=== PATIENT | male | born 1955 | race Caucasian/White ===

== ENCOUNTER 2017-01-14 22:44 | Emergency (ER) | payer MEDICARE ==
--- NOTE | ~2017-01-14 | CR63 ---
[facility] A Service of [facility] & [facility] RADIOLOGY TEXT RESULTS PATIENT: RACHEL COELLO LOCATION: [facility] : 53 UNIT #: [id number] AGE: [address]: Joe Pierce MD SEX: M ORDER DR: [id number] [facility] [address] [place], [place] [address] [id number] E MR#: [id number] Acc #: [id number] NAME: RACHEL COELLO : 1955 SEX: M STUDY DATE/TIME: 01/15/2017 03:26 UNIT: [facility] ROOM: STUDY DESCRIPTION: CR Chest 2 View Attending Physician: Joe Pierce M.D. Ordering Physician: Joe Pierce M.D. Primary Care Physician: [facility] MEDICAL IMAGING REPORT This report is preliminary unless electronic signature is present EXAM Chest x-ray 04/06/2016 03:26 INDICATIONS Shortness of air, fever tonight. FINDINGS PA and lateral views of the chest are compared with 11/08/2011. Cardiomegaly is stable. Lungs are clear. Vascularity is normal. No pneumothorax. IMPRESSION Stable cardiac enlargement. No active disease. Dictated by... Alexys Oden Jr., M.D. THIS IS AN ELECTRONICALLY VERIFIED REPORT Alexys Oden Jr., M.D. at 01/16/2017 5:53 AM YIMI/ceferino TD: 01/15/2017 07:27 JOB #: [id number] MEDICAL IMAGING REPORT Page 1 of 1 COPY
[~2017-01-14 22:44] MED LIST: ASPIRIN ENTERI325 M1; B COMPLEX1 TAB PO; BUPROPION XL300 M1 PO; CARTIA PO; CARTIA XT PO; CARVEDILOL12.5 MG PO; CELEBREX PO; CERTAGEN PO; COLESTID PO; DILTIAZEM 24HR240 M1 PO; FENOFIBRATE134 MG PO; GLUCOSAMINE-CH1 EA10 PO; GLUCOSOMINE; HCTZ PO; HYDROCHLOROTHIA25 MG PO; HYDROCODON-ACE1 EAC5 PO; HYDROCODONE-APA1 T30 PO; HYTRIN5 MG; IBUPROFEN PO; IBUPROFEN800 MG; LASIX PO; LISINOPRIL PO; LOPRESSOR PO; LORTAB 7.5-5001 TAB; MULTIPLE VITAMI1 T11 PO; OMEPRAZOLE40 M1 PO; PHENERGAN PO; PRILOSEC PO; PROZAC PO; SEROQUEL PO; THORAZINE PO; TYLENOL #3 PO; VITAMIN C PO; VITAMIN E400 UNI4 PO; XANAX0.5 MG
[2017-01-15 03:05] LABS: BASOPHIL# 0.1 X10e3 (0-0.3); EOSINOPHIL# 0.1 X10e3 (0-0.7); EOSINOPHIL% 1.7 % (0.0-7.0); HEMATOCRIT 47.7 % (38.0-50.0); HEMOGLOBIN 15.9 gm/dL (13.0-16.0); LYMPHOCYTE# 2.2 X10e3 (1.0-3.5); LYMPHOCYTE% 28.4 % (17.0-45.0); MEAN CORPUSCULAR HEMOGLOBIN 30.9 PG (28-34); MEAN CORPUSCULAR HGB CONC 33.3 g/dL (30-36); MEAN PLATELET VOLUME 8.6 FL (6.5-11.5); MONOCYTE% 12.7 % (3.0-12.0); NEUTROPHIL# 4.3 X10e3 (1.5-7.1); NEUTROPHIL% 56.2 % (40-75); PLATELET COUNT 252 X10e3 (140-420); RED BLOOD COUNT 5.13 X10e (3.90-5.60); RED CELL DISTRIBUTION WIDTH 13.8 % (11.0-15.5); WHITE BLOOD COUNT 7.6 X10e3 (4.0-10.5)
[2017-01-15 03:17] LABS: DIFF IND NO
[2017-01-15 03:30] LABS: ALBUMIN SERUM 4.6 g/dL (3.5-5.0); BILIRUBIN, DIRECT 0.2 mg/dL (0.0-0.2); BILIRUBIN,INDIRECT 0.6 mg/dL (0.0-0.9); BILIRUBIN,TOTAL 0.8 mg/dL (0.2-2.0); BUN/CREATININE RATIO 17.5; CALCIUM SERUM 9.2 mg/dL (8.4-10.2); CREATININE SERUM 1.2 mg/dL (0.6-1.4); GLOM FILT RATE Estimated 64.4 mL/min (>60); POTASSIUM 3.5 mmol/L (3.5-5.1); PROTEIN TOTAL SERUM 7.4 g/dL (6.0-8.3)
== END 2017-01-15 05:07 | disposition home or self-care (01) ==
LOC: CED 22:44
PROVIDERS: Emergency Medicine
DX: J20.9 Acute bronchitis, unspecified (principal); I10 Essential (primary) hypertension
CPT/HCPCS: 36415; 71020; 80048; 80076; 85025; 87040; 94640; 96374; 99284; J2930

== ENCOUNTER 2017-03-09 16:44 | Emergency (ER) | payer MEDICARE ==
--- NOTE | ~2017-03-09 | EKG ---
PATIENT: RACHEL COELLO UNIT #: [id number] Ventricular Rate: 56 BPM Atrial Rate: 150 BPM QRS Duration: 104 ms Q-T Interval: 446 ms QTC Calculation(Bezet): 430 ms Calculated R Lefor: -51 degrees Calculated T Lefor: 59 degrees Diagnosis Line: Atrial fibrillation with slow ventricular response Diagnosis Line: Left axis deviation Diagnosis Line: Inferior infarct Diagnosis Line: Abnormal ECG Diagnosis Line: When compared with ECG of 22-JUN-2016 11:54, Diagnosis Line: Atrial fibrillation has replaced Sinus rhythm Diagnosis Line: Confirmed by JULIO FRITZ MD ([id number]) on Diagnosis Line: 03/10/2017 10:06:41 AM INTERPRETING MD: CHAGO
[2017-03-09 18:25] LABS: BASOPHIL% 0.5 % (0-2.5); EOSINOPHIL# 0.1 X10e3 (0-0.7); EOSINOPHIL% 1.9 % (0.0-7.0); HEMATOCRIT 45.6 % (38.0-50.0); HEMOGLOBIN 15.1 gm/dL (13.0-16.0); LYMPHOCYTE# 1.6 X10e3 (1.0-3.5); LYMPHOCYTE% 23.2 % (17.0-45.0); MEAN CELL VOLUME 93.6 FL (83-96); MEAN CORPUSCULAR HEMOGLOBIN 30.9 PG (28-34); MEAN PLATELET VOLUME 9.4 FL (6.5-11.5); MONOCYTE# 0.9 X10e3 (0-1.0); MONOCYTE% 12.7 % (3.0-12.0); NEUTROPHIL# 4.1 X10e3 (1.5-7.1); NEUTROPHIL% 61.7 % (40-75); PLATELET COUNT 195 X10e3 (140-420); RED BLOOD COUNT 4.87 X10e (3.90-5.60); RED CELL DISTRIBUTION WIDTH 14.1 % (11.0-15.5); WHITE BLOOD COUNT 6.7 X10e3 (4.0-10.5)
[2017-03-09 18:27] LABS: POC - TROPONIN <0.05 ng/mL (<=0.05)
[2017-03-09 18:31] LABS: DIFF IND NO
[2017-03-09 18:47] LABS: ALBUMIN SERUM 4.4 g/dL (3.5-5.0); BILIRUBIN, DIRECT 0.1 mg/dL (0.0-0.2); BILIRUBIN,INDIRECT 0.7 mg/dL (0.0-0.9); BILIRUBIN,TOTAL 0.8 mg/dL (0.2-2.0); BUN/CREATININE RATIO 22.5; CALCIUM SERUM 9.3 mg/dL (8.4-10.2); CREATININE SERUM 1.2 mg/dL (0.6-1.4); GLOM FILT RATE Estimated 64.4 mL/min (>60); POTASSIUM 3.7 mmol/L (3.5-5.1); PROTEIN TOTAL SERUM 6.9 g/dL (6.0-8.3)
== END 2017-03-09 22:15 | disposition home or self-care (01) ==
LOC: CED 16:44
PROVIDERS: Emergency Medicine
DX: I48.91 Unspecified atrial fibrillation (principal); I10 Essential (primary) hypertension
CPT/HCPCS: 36415; 80048; 80076; 82553; 83880; 84484; 85025; 93005; 99284